=== PATIENT | male | born 1980 | race Caucasian/White ===

== ENCOUNTER 2017-01-07 07:19 | Day surgery (SDC) | payer OTHER ==
[~2017-01-07] VITALS: Ht 175.3 cm; Wt 99.8 kg
[~2017-01-07 07:19] MED LIST: BACTRIM DS TAB1 EACH PO
--- NOTE | 2017-01-07 10:42 | Operative Note-Podiatry ---
Procedure/Operative Record Procedure DATE OF PROCEDURE 01/07/17 PREOPERATIVE DIAGNOSIS Right 5th metatarsal displaced fracture POSTOPERATIVE DIAGNOSIS Same as Preop Dx PROCEDURE PERFORMED Right 5th metatarsal ORIF SURGEON Miguel Echavarria DPM ANESTHESIA General 30 cc 0.5% marcaine plain EBL (ml) 10 OPERATIVE NOTE/DISCHARGE/PLAN Indication for procedure: This is a pleasant 36-year-old male who unfortunately tripped and fell Tuesday night. He injured the RIGHT foot when sized primary care doctor, Dr. Bernardo yesterday who referred him to my office after x-rays showed a displaced fifth metatarsal fracture. Patient was given crutches and only to be nonweightbearing. 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 We discussed conservative first surgical management. We discussed surgery because of his lifestyle and need to return to work as soon as possible. We discussed risks and benefits of surgery including, limited to damage just small nerve and blood vessels, delayed healing of soft tissue and bone, nonunion malunion, infection, bleeding, refracture, nerve complication including RSD CRPS, DVT, prolonged pain and swelling, and anesthesia complications. All questions fully answered patient understands the risks. No guarantees given. Informed consent obtained RIGHT fifth metatarsal open reduction internal fixation: On the stained time the patient was deemed an appropriate surgical candidate and with the informed consent signed and patient was removed from the preoperative holding area to the operating theater and placed on the table in a normal supine position. After induction of general anesthetic midcalf tourniquet was inflated 225 mmHg after the RIGHT lower cavity had been prepped and draped in normal sterile fashion. Attention was directed to the lateral aspect of the RIGHT foot where intraoperative fluoroscopy was utilized to sydni out the fracture. A linear incision was marked out dorsolaterally over the fifth metatarsal. Dissection was carried through skin through subcutaneous tissue with care taken to maintain surgical hemostasis and safely retract neurovascular structures. Dissection was carried down into a layered fashion. Fracture was visualized and spiral oblique orientation. The fracture was distracted a curet was used to clean out the debris the wound was flushed with responsive normal sterile saline utilizing bone reduction forceps the fracture was reduced and a K wire was used to temporarily hold the fracture. Intraoperative fluoroscopy was used to visualize reduction which was deemed to be adequate. At this point a 2.4 mm screw was used of the left anterior descending across the fracture 2. Reduction clamp was removed adequate reduction of fractures noted a 4 hole RIGHT medical plate was then inserted with 2 x 2.4 mm screws, one locking and one nonlocking. Final x- rays were obtained showing adequate reduction. At this point/consistent with some saline. Ignite graft was used at the fracture site. 3-0 Vicryl was used to close the deep tissue. 4-0 Vicryl was used to reapproximate the subcutaneous tissue in a running fashion. 4-0 nylon was then used to approximate the skin in interrupted horizontal mattress fashion. Via flows and inserted under the skin. 30 mL of half percent Marcaine plain was infiltrated in the regional ankle block to the RIGHT lower extremity. Tourniquet was deflated and immediate hyperemic response was noted to the digits at 1h 14 minutes. Xeroform dry sterile dressing was then applied to the RIGHT lower extremity followed by a posterior splint. Patient was woken from anesthesia with vs stable and NV status intact to transferred to recovery for further monitoring before being discharged home today. Materials: RIGHT medical 4 hole plate 2.4 mm nonlocking screw 3 2.4 mm locking screw 1 Via flow Ignite bone graft Complications: None Specimens: None Plan: Maintain dressing clean dry and intact to RLE Elevated and apply ice behind the RIGHT knee Nonweightbearing with crutches Rx given for rolling knee scooter Patient has Rx for Commiskey, Zofran, Motrin X-rays in the PACU Follow-up in 1 week at 1052
--- NOTE | 2017-01-07 10:52 | Anesthesia Record ---
Anesthesia Record Part I Total IV fluids: 500 EBL (ml): 25 Urine Output: 0 B/P: 141/93 % SaO2: 95 Pulse: 88 Resps: 18 Temp: 97.0 Patient is: Stable Stable to PACU at: 1046 at 1051
--- NOTE | 2017-01-07 10:53 | Anesthesia Record ---
Anesthesia Record Part II Discharge time: 1116 Destination: Same day surgery PACU nurse assessment review? Yes Patient is: Stable Anesthesia complications? No at 1053
--- NOTE | 2017-01-07 13:09 | RADIOLOGY REPORT PS360 ---
FOOT-RT-2 VIEWS HISTORY: Follow-up fracture/ORIF ORIF RT FOOT ORDERING PHYSICIAN: MIGUEL CARLSON DPM PATIENT AGE: 36 years COMPARISON: 01/06/2017 FINDINGS: 3 images submitted with the C-arm show interval placement of a bone plate with 2 screws and 2 additional screws stabilizing the fifth metatarsal fracture which is in good alignment. IMPRESSION: Good alignment status post ORIF fifth metatarsal fracture
--- NOTE | 2017-01-07 13:11 | RADIOLOGY REPORT PS360 ---
FOOT-RT-3 VIEWS HISTORY: Follow-up fracture/ORIF POST-OP ORDERING PHYSICIAN: MIGUEL CARLSON DPM PATIENT AGE: 36 years COMPARISON: 01/06/2017 FINDINGS: There is been interval placement of a bone plate along the lateral aspect of the distal fifth metatarsal stabilizing the oblique fracture which is in good alignment with no significant displacement. Previously noted displacement has improved. There are 2 screws in the bone plate and 2 additional screws within the fracture site. The study is obtained through a splint. IMPRESSION: Good alignment status post ORIF fifth metatarsal fracture
[2017-01-07 13:25] VITALS: BP 145/75
== END 2017-01-07 11:52 | disposition home or self-care (01) ==
LOC: SDC 07:19
PROVIDERS: Podiatrist
PROC: 0QSN04Z Reposition Right Metatarsal with Internal Fixation Device, Open Approach (ICD-10-PCS; principal; 2017-01-07 08:30)
DX: S92.351A Displaced fracture of fifth metatarsal bone, right foot, initial encounter for closed fracture (principal); W18.39XA Other fall on same level, initial encounter
CPT/HCPCS: C1713; C1762; C1776; J2405